=== PATIENT | male | born 1940 | race Caucasian/White ===

== ENCOUNTER 2020-08-14 14:12 | Outpatient (CLI) | payer MEDICARE, OTHER, SELFPAY ==
--- NOTE | ~2020-08-14 | CT_ITS ---
EXAMINATION: CT abdomen pelvis w con DATE: 08/14/2020 15:00 INDICATION: Prostate cancer TECHNIQUE: Computed tomography (CT) of the abdomen and pelvis was performed with 100 cc Omnipaque 350 intravenous contrast. The dose-length product was 507.16 mGy-cm. Automated exposure control and iter ative reconstruction technique were employed. COMPARISON: CT dated 06/02/2019 FINDINGS: There are calcified granulomas of the right lower lobe. Heart size normal. Small left pleur al effusion. There is a new pleural-based soft tissue mass surrounding T9 and T10 with burst fracture of T10 which is new, possibly pathologic. The soft tissue likely represents metastatic disease. Pros dutta gland is enlarged and heterogeneous consistent with known malignancy. There has been interval de velopment of moderate right hydroureteronephrosis secondary to obstructing mass at the UVJ. [place] er is moderately distended. No free air or free fluid. Fatty infiltration of the liver. The spleen, pancreas, adrenal glands are unremarkable. There is a sm all hypodensity of the left kidney, most likely benign. Severe lumbar spondylosis. There is extensive atherosclerosis and ectasia of the aorta without evidence for aneurysm. Nonobstructive bowel gas pat tern. IMPRESSION: 1. Enlarged heterogeneous prostate gland with possible invasion of the posterior margin the bladder w all and seminal vesicles. There is obstruction of the right ureter with interval development of moder ate hydroureteronephrosis. 2: New pleural-based soft tissue mass surrounding T9 and T10 with interval development of burst fract ure at T10, possibly pathologic. Findings suspicious for metastatic disease. 3: New small left pleural effusion. Reviewed, dictated and finalized at location A. IMPRESSION: 1. Enlarged heterogeneous prostate gland with possible invasion of the posterio r margin the bladder wall and seminal vesicles. There is obstruction of the rig ht ureter with interval development of moderate hydroureteronephrosis. 2: New pleural-based soft tissue mass surrounding T9 and T10 with interval deve lopment of burst fracture at T10, possibly pathologic. Findings suspicious for metastatic disease. 3: New small left pleural effusion.
[2020-08-14 14:55] LABS: Estimated Glomerular Filt Rate 58
== END 2020-08-14 14:13 | disposition home or self-care (01) ==
LOC: ANHIMG 14:22
PROVIDERS: PCP Family Medicine; Visit Provider Urology
DX: C61 Malignant neoplasm of prostate (principal); J90 Pleural effusion, not elsewhere classified
CPT/HCPCS: 74177; Q9967

== ENCOUNTER 2020-08-15 08:48 | Outpatient (CLI) | payer MEDICARE, OTHER, SELFPAY ==
--- NOTE | ~2020-08-15 | NM_ITS ---
EXAMINATION: NM bone scan whole body DATE: 08/15/2020 12:05 INDICATION: Malignant neoplasm of the prostate. TECHNIQUE: 24.4 mCi Tc-99m HDP was administered intravenously. Delayed whole-body scintigrams were o btained. COMPARISON: 06/03/2019 FINDINGS: There is increased bone uptake now extending horizontally across the T10 vertebral body corresponding to a burst fracture on prior CT. There is an enhancing paraspinal mass surrounding the vertebral bod y raising concern for pathologic fracture. There is additional focus of increased uptake at the L2 ve rtebral body with region of subtle sclerosis at the posterior aspect of the vertebral body suspicious for metastatic disease. There is increased uptake at the inferior aspect of the left scapula and dilma ng the posterior left fifth rib which are also new since the prior study. Focus of more subtle uptake at left anterolateral left ninth rib without evident correlate on CT. Again seen is mild joint cente red uptake at the bilateral L4-L5 facet joints with corresponding severe hypertrophic changes on CT. Focus of increased uptake at the radial aspect of the right wrist likely related to small amount of e xtravasation of activity at the site of injection. IMPRESSION: 1. Increased uptake associated with a T10 burst fracture with surrounding soft tissue on CT raising c oncern for metastases with pathologic fracture. 2. A few additional bone lesions with increased uptake new since prior bone scan at the left scapula, couple left ribs and the L2 vertebral body, the latter with subtle corresponding sclerotic lesion al so suspicious for metastatic disease. Reviewed, dictated and finalized at location B. IMPRESSION: 1. Increased uptake associated with a T10 burst fracture with surrounding soft tissue on CT raising concern for metastases with pathologic fracture. 2. A few additional bone lesions with increased uptake new since prior bone sca n at the left scapula, couple left ribs and the L2 vertebral body, the latter w ith subtle corresponding sclerotic lesion also suspicious for metastatic diseas e.
== END 2020-08-15 08:49 | disposition home or self-care (01) ==
PROVIDERS: PCP Family Medicine; Visit Provider Urology
DX: C61 Malignant neoplasm of prostate (principal); S22.071A Stable burst fracture of T9-T10 vertebra, initial encounter for closed fracture; M89.9 Disorder of bone, unspecified
CPT/HCPCS: 78306; A9561

== ENCOUNTER 2020-08-16 11:22 | Outpatient (CLI) | payer MEDICARE, OTHER, SELFPAY ==
[2020-08-16 20:46] LABS: SARS-CoV-2 RNA PCR Negative
== END 2020-08-16 11:23 | disposition home or self-care (01) ==
LOC: ANHCOVIDDT 11:22
PROVIDERS: PCP Family Medicine; Visit Provider Urology
DX: Z01.812 Encounter for preprocedural laboratory examination (principal); Z20.828 Contact with and (suspected) exposure to other viral communicable diseases
CPT/HCPCS: 87635; C9803; U0003

== ENCOUNTER 2020-08-17 10:58 | Outpatient (CLI) | payer MEDICARE, OTHER, SELFPAY ==
[2020-08-16 13:09] VITALS: BMI 25.8
[2020-08-17] VITALS (10 sets, daily range): BP systolic 140–157; BP diastolic 65–81; PULSE 61–85; RESP 18–20; O2SAT 98
--- NOTE | ~2020-08-17 | CT_ITS ---
EXAMINATION: CT guide nephro tube pl RT DATE: 08/17/2020 14:32 INDICATION: Right hydronephrosis with ureteral stricture. TECHNIQUE: The procedure including the risks, benefits, and alternatives was discussed with the patie nt's . Risks discussed included bleeding and infection. The patient was given 1 g Ancef IV. The skin overlying the right kidney was prepped and draped in usual sterile fashion. Anesthetic was admi nistered with 1% lidocaine subcutaneously. An 18 gauge trochar needle was inserted into a calyx of th e kidney under CT guidance. The needle was exchanged over a wire for 6 Urdu, 8 Urdu, and 9 Urdu dilators and then for an 8.5 Urdu pigtail catheter under CT guidance. The catheter was stitched to the skin. A dressing was applied. The mA was adjusted according to patient size. Iterative reconstru ction technique was employed. The dose-length product was 232.14 mGy-cm. There were no immediate comp lications. FINDINGS: CT images demonstrate the nephrostomy tube in the renal pelvis. IMPRESSION: 1. Successful CT-guided right nephrostomy tube placement]. Reviewed, dictated and finalized at location A.
[2020-08-17 12:08] LABS: Hematocrit 32.4 % (42.0-52.0); Hemoglobin 10.6 g/dL (14.0-18.0); Mean Corpuscular HGB Conc 32.7 g/dl (32-36); Mean Corpuscular Hemoglobin 31.9 pg (26-34); Mean Corpuscular Volume 97.6 fl (80-100); Mean Platelet Volume 9.1 fl (7.4-10.4); Platelet Count Result 257 k/mm3 (150-375); Red Blood Count 3.32 M/mm3 (4.6-6.20); Red Cell Distribution Width 12.8 % (11.5-14.5); White Blood Count 6.2 K/mm3 (4.5-10.0)
[2020-08-17 12:20] LABS: INR 1.1; Prothrombin Time 13.8 Seconds (11.1-14.7)
--- NOTE | 2020-08-17 18:16 | SUR.PHASEII ---
1500 - pt assisted with standing to help with urinating with urinal. 1600 - pt sleeping in intervals. at bedside 1700 - pt resting in stretcher. vss. 1715 - dr. ortiz called and updated on pt's status 1800 - pt ready for discharge. iv discontinued.
== END 2020-08-17 18:00 | disposition home or self-care (01) ==
PROVIDERS: Radiology Diagnostic Radiology; PCP Family Medicine; Visit Provider Urology
DX: N13.5 Crossing vessel and stricture of ureter without hydronephrosis (principal)
CPT/HCPCS: 36415; 50432; 85027; 85610; C1769